=== PATIENT | male | born 1980 | race Caucasian/White ===

== ENCOUNTER 2019-07-03 19:43 | Emergency (ER) | payer OTHER ==
[~2019-07-03] VITALS: Ht 175.3 cm; Wt 101.4 kg
[2019-07-03] MEDS ORDERED: NAPR-885 (19:58)
[2019-07-03] MEDS ORDERED: FLUTISP (19:58)
[2019-07-03] MEDS ORDERED: DIVA500T94 (19:58)
[2019-07-03] MEDS ORDERED: AMOX875T (19:58)
[2019-07-03] MEDS ORDERED: ACETAMINOPHEN 500 MG TAB PO ONE (20:45)
[2019-07-03] MEDS ORDERED: KETOROLAC 30 MG/ML 1ML VIAL IV ONE (20:45)
[2019-07-03] MEDS ORDERED: dexameTHASONE 4 MG/ML 1ML VIAL (J1100 PER 1MG) IV ONE (20:45)
[2019-07-03] MEDS ORDERED: ONDANSETRON 4MG/2ML VIAL IV ONE (20:45)
[2019-07-03] MEDS ORDERED: NS 1,000 ML IV ONE (20:45)
--- NOTE | 2019-07-03 21:02 | REPVR ---
PROCEDURE INFORMATION: Exam: CT Head Without Contrast Exam date and time: 07/03/2019 8:54 PM Age: 38 years old Clinical indication: Pain; Headache; Additional info: Headache after fall TECHNIQUE: Imaging protocol: Computed tomography of the head without contrast. Radiation optimization: All CT scans at this facility use at least one of these dose optimization techniques: automated exposure control; mA and/or kV adjustment per patient size (includes targeted exams where dose is matched to clinical indication); or iterative reconstruction. COMPARISON: CT Head without contrast 05/11/2015 1:49 PM FINDINGS: Brain: Normal. No hemorrhage. Unremarkable white matter. No mass effect. Ventricles: Normal. No ventriculomegaly. Bones/joints: Unremarkable. No acute fracture. Sinuses: Visualized sinuses are unremarkable. No fluid levels. Mastoid air cells: Visualized mastoid air cells are well aerated. Soft tissues: Unremarkable. IMPRESSION: No acute intracranial abnormality. Electronically signed by: Jose Warner On 07/03/2019 21:02:21 PM
[2019-07-03 21:55] VITALS: BP 132/88
== END 2019-07-03 22:10 | disposition home or self-care (01) ==
LOC: M ED 19:43
DX: G43.909 Migraine, unspecified, not intractable, without status migrainosus (principal)
CPT/HCPCS: 70450; 96361; 96374; 96375; 99284; J1100; J1885; J2405

== ENCOUNTER 2019-11-24 11:43 | Emergency (ER) | payer OTHER ==
[~2019-11-24] VITALS: Ht 175.3 cm; Wt 102.3 kg
[~2019-11-24 11:43] MED LIST: AMOX875T; DIVA500T94; FLUTISP; NAPR-885
[2019-11-24 14:16] VITALS: BP 136/79
--- NOTE | 2019-12-02 12:45 | REP ---
LEFT ANKLE SERIES: 4-VIEWS HISTORY: Injury in a slip and fall. FINDINGS: Four views of the left ankle demonstrate an intact ankle mortise. No fracture or subluxation is seen. There is minimal perimalleolar soft tissue swelling laterally. IMPRESSION: No fracture noted. MTDD
== END 2019-11-24 14:17 | disposition home or self-care (01) ==
LOC: M ED 11:43
DX: M25.572 Pain in left ankle and joints of left foot (principal); W18.40XA Slipping, tripping and stumbling without falling, unspecified, initial encounter; Y92.89 Other specified places as the place of occurrence of the external cause; Y93.9 Activity, unspecified; Y99.0 Civilian activity done for income or pay; K21.9 Gastro-esophageal reflux disease without esophagitis; Z79.899 Other long term (current) drug therapy